=== PATIENT | female | born 1965 | race Caucasian/White ===

== ENCOUNTER 2018-03-04 12:32 | Emergency (ER) | payer OTHER ==
[~2018-03-04] VITALS: Ht 165.1 cm; Wt 111.1 kg
[2018-03-04 12:43] VITALS: BP_SYST 166
--- NOTE | 2018-03-04 15:15 | NUR ---
Patient to ER bed 8 to gown for evaluation. Side rails up. Report given to Eliza CONDON.
--- NOTE | 2018-03-04 15:17 | NUR ---
Patient brought in with daughter. Reporting that she fell at work while at [employer] and hit her head on the edge of a shelf. Bleeding under control. Denies any LOC, dizziness, vision changes or neck pain. Reports being up to date on tetanus vaccine. 2 cm to the back of her head noted. No other complaints/injuries per patient or as noted. Will continue to monitor.
--- NOTE | 2018-03-04 15:20 | NUR ---
FLASH Richards examining patient.
[2018-03-04] MEDS ORDERED: BACITRACIN 1 GM OINT TP ONE (15:30)
[2018-03-04] MEDS ORDERED: IBUPROFEN 600 MG TABLET PO ONE (15:30)
[2018-03-04] MEDS ORDERED: LIDOCAINE/EPI 1% 1:100000 20 ML VIAL INJ ONE ×2 (15:30→15:32)
--- NOTE | 2018-03-04 15:37 | NUR ---
Medicated Per ENVELOPE FOLDER orders. Patient tolerated well
--- NOTE | 2018-03-04 15:37 | NUR ---
Note marthamanolo in EDM - 03/04/18 at 1545 by [email or web address] Patient has a two 1 cm laceration to left posterior head. RENALDO Richards applied amadeo using sterile technique. Edges well approximated. Site cleansed with normal saline and betadine. Bacitracin applied to area. No bleeding noted. Pt tolerated well.
--- NOTE | 2018-03-04 15:38 | NUR ---
Patient has a 2 cm laceration to left posterior head. PRECIPITATE WASHER Richards applied 7 amadeo Edges well approximated. Site cleansed with normal saline and betadine. Bacitracin applied to area. No bleeding noted. Pt tolerated well.
[2018-03-04 15:50] VITALS: BP_SYST 148
--- NOTE | 2018-03-04 15:50 | NUR ---
Patient given written and verbal discharge instructions and verbalizes understanding. ER AIR MOTOR REPAIRER discussed with patient the results and treatment provided. Patient in stable condition. ID arm band removed. Rx of Motrin and bacitracin given. Patient educated on pain management and to follow up with PMD in 2 days for wound check and 5 days for suture removal. Pain Scale 0/10 Opportunity for questions provided and answered. Medication side effect fact sheet provided.
== END 2018-03-04 15:50 | disposition home or self-care (01) ==
LOC: SED 12:32
DX: S01.01XA Laceration without foreign body of scalp, initial encounter (principal); S50.12XA Contusion of left forearm, initial encounter; R03.0 Elevated blood-pressure reading, without diagnosis of hypertension; W11.XXXA Fall on and from ladder, initial encounter; Y93.89 Activity, other specified; Y92.89 Other specified places as the place of occurrence of the external cause; Y99.8 Other external cause status
CPT/HCPCS: 99283

== ENCOUNTER 2018-03-14 18:53 | Emergency (ER) | payer OTHER ==
[~2018-03-14] VITALS: Ht 165.1 cm; Wt 113.9 kg
[2018-03-14 19:04] VITALS: BP_SYST 188
== END 2018-03-14 20:45 | disposition home or self-care (01) ==
LOC: SED 18:53
DX: S01.01XD Laceration without foreign body of scalp, subsequent encounter (principal); X58.XXXD Exposure to other specified factors, subsequent encounter
CPT/HCPCS: 99281